=== PATIENT | male | born 2005 | race Caucasian/White ===

== ENCOUNTER 2024-12-22 20:31 | Emergency (ER) | payer BC ==
[~2024-12-22] VITALS: Ht 180.3 cm; Wt 74.8 kg
[~2024-12-22 20:31] MED LIST: AMOXIL250 MG/5 M PO; BACTROBAN OINT22 GM PO; ZITHROMAX200 MG/51 PO; ZOFRAN4 MG PO
[2024-12-22] MEDS ORDERED: EPINEPHrine Hydrochloride 1 MG/ML AMP IM ONE (21:55)
== END 2024-12-23 01:12 | disposition home or self-care (01) ==
LOC: ED 20:31
DX: S10.96XA Insect bite of unspecified part of neck, initial encounter (principal); R09.89 Other specified symptoms and signs involving the circulatory and respiratory systems; W57.XXXA Bitten or stung by nonvenomous insect and other nonvenomous arthropods, initial encounter; Y93.89 Activity, other specified; Y92.89 Other specified places as the place of occurrence of the external cause; Y99.8 Other external cause status